=== PATIENT | female | born 1995 | race Caucasian/White ===

== ENCOUNTER 2017-09-12 08:21 | Emergency (ER) | payer BC, OTHER ==
[2017-09-12 08:28] VITALS: BP 120/82; PULSE 95; RESP 17; TEMP 97.6
--- NOTE | 2017-09-12 08:36 | ED ---
General Adult HPI - General Chief complaint: Extremity Injury, Upper Stated complaint: RT HAND INJURY Time Seen by Provider: 09/12/17 08:30 Source: patient, RN notes reviewed Mode of arrival: ambulatory Limitations: no limitations - History of Present Illness Initial comments: 22-year-old female presents to the emergency department with a chief complaint of right hand injury. Patient states that she punched a wooden wall last night. She now has pain to the right hand and to the right wrist. Pain is moderate worse to movement or touch. She denies any other injury from the incident. She denies any elbow pain.Patient denies any recent fever, chills, shortness of breath, chest pain, back pain, abdominal pain, nausea vomiting, numbness or tingling, dysuria or hematuria, constipation or diarrhea, headaches or visual changes, or any other current symptoms. - Related Data Previous Rx's Medication Instructions Recorded Ciprofloxacin HCl [Cipro] 500 mg PO Q12HR #14 tablet 01/14/16 Miconazole Nitrate [Miconazole 3] 200 mg VAGINAL HS #1 package 01/14/16 Pantoprazole Sodium [Protonix] 40 mg PO DAILY #30 tablet. 01/14/16 metroNIDAZOLE [Flagyl] 500 mg PO Q8HR #21 tab 01/14/16 Allergies Allergy/AdvReac Type Severity Reaction Status Date / Time latex Allergy Rash/Hives Verified 09/12/17 08:24 Review of Systems ROS Statement: Those systems with pertinent positive or pertinent negative responses have been documented in the HPI. ROS Other: All systems not noted in ROS Statement are negative. Past Medical History Past Medical History: No Reported History History of Any Multi-Drug Resistant Organisms: None Reported Past Surgical History: No Surgical Hx Reported Past Anesthesia/Blood Transfusion Reactions: No Reported Reaction Past Psychological History: No Psychological Hx Reported Smoking Status: Never smoker Past Alcohol Use History: None Reported Past Drug Use History: None Reported - Past Family History Father Family Medical History: Hypertension General Exam - General Exam Comments Initial Comments: General: The patient is awake and alert, in no distress, and does not appear acutely ill. Neck: The neck is supple, there is no tenderness. Cardiovascular: There is a regular rate and rhythm. No murmur, rub or gallop is appreciated. Respiratory: Lungs are clear to auscultation, respirations are non-labored, breath sounds are equal. No wheezes, stridor, rales, or rhonchi. Musculoskeletal: Sensation intact with 2+ pulses throughout the right upper x- ray. full range of motion of right elbow and right wrist and right hand tenderness along the fourth and fifth metacarpal and tenderness to palpation at the distal right wrist with some swelling noted with minimal bruising. Neurological: CN II-XII intact, There are no obvious motor or sensory deficits. Coordination appears grossly intact. Speech is normal. Skin: Skin is warm and dry and no rashes or lesions are noted. Psychiatric: Normal mood and affect. Limitations: no limitations Course Vital Signs 09/12/17 08:24 Temperature 97.6 F Pulse Rate 95 Respiratory 17 Rate Blood Pressure 120/82 O2 Sat by Pulse 97 Oximetry Procedures - Orthopedic Splinting/Casting Injury #1 Side: right Upper Extremity Injury Location: wrist Upper Extremity Immobilizer: ulnar gutter Medical Decision Making - Medical Decision Making 22-year-old female presents with right wrist pain. At this time patient does appear to have a fifth metacarpal fracture to the right hand. At this time she was placed in a splint and given follow-up to orthopedic. We did discuss return parameters and all questions and mcc with the patient. She stated that she understood and she is in agreement this plan. This time she will be discharged. - Radiology Data Radiology results: report reviewed, image reviewed Disposition Clinical Impression: Fracture of fifth metacarpal bone of right hand Disposition: HOME SELF-CARE Condition: Stable Instructions: Hand Fracture (ED) Additional Instructions: Please use medication as discussed. Please follow up with family doctor if symptoms have not improved over the next two days. Please return to the emergency room if your symptoms increase or worsen or for any other concerns. Referrals: Jesusita Novak III, MD [Primary Care Provider] - 1-2 days Walter Caraballo MD [Medical Doctor] - 1-2 days Time of Disposition: 09:15
--- NOTE | 2017-09-12 08:59 | XR ---
EXAMINATION TYPE: XR hand complete RT , 3 VIEWS DATE OF EXAM ORDERED: 09/12/2017 HISTORY: Pain. COMPARISON: None. FINDINGS: There is a minimally displaced, mildly angulated fracture of the distal metaphysis of the right fifth metacarpal. No additional fractures are seen. IMPRESSION: UNDISPLACED, HIGHLY ANGULATED FRACTURE OF THE DISTAL METAPHYSIS OF THE RIGHT FIFTH METACARPAL. CODE A: INITIAL ENCOUNTER FOR CLOSED FRACTURE.
--- NOTE | 2017-09-12 09:00 | XR ---
EXAMINATION TYPE: XR wrist complete RT , 4 VIEWS DATE OF EXAM ORDERED: 09/12/2017 HISTORY: Pain. COMPARISON: None. FINDINGS: Undisplaced, minimally angulated fracture distal fifth metacarpal metaphysis is again iden tified. No additional fracture, dislocation or other acute osseous lesion is seen. IMPRESSION: MINIMALLY DISPLACED, MILDLY ANGULATED FRACTURE OF THE DISTAL METAPHYSIS OF THE RIGHT FIFTH METACARPAL . CODE A: INITIAL ENCOUNTER FOR CLOSED FRACTURE.
== END 2017-09-12 09:21 | disposition home or self-care (01) ==
LOC: EC 08:21
DX: S62.336A Displaced fracture of neck of fifth metacarpal bone, right hand, initial encounter for closed fracture (principal); Z91.040 Latex allergy status; W22.01XA Walked into wall, initial encounter; Y92.009 Unspecified place in unspecified non-institutional (private) residence as the place of occurrence of the external cause
CPT/HCPCS: 29125; 99283

== ENCOUNTER → 2018-03-30 | Outpatient (CLI) | payer BC ==
--- NOTE | 2018-03-31 08:40 | USB ---
Reason for exam: clinical finding. History: Family history of breast cancer in paternal aunt at age 60. Benign US left guided VAD of the left breast, October 09, 2010. Indicated problem(s): palpable abnormality in the left breast. Physical Findings: Nurse Summary: 1cm nodule at 2 o'clock, moves, no noted nipple discharge (nurse dw). US Breast BILAT Right complete breast ultrasound includes all four quadrants, the retroareolar region and axilla. Finding demonstrates a 0.4 x 0.2 x 0.2cm lesion too small to characterize at 11 o'clock and duct ectasia at the nipple. Left complete breast ultrasound includes all four quadrants, the retroareolar region and axilla. Finding demonstrates duct ectasia at the nipple. These results were verbally communicated with the patient and result sheet given to the patient on 03/30/18. ASSESSMENT: Benign, BI-RAD 2 RECOMMENDATION: Routine screening mammogram of both breasts at age 40. Manage patient on a clinical basis.
== END ==
LOC: RADUSWWP 15:33
PROVIDERS: ATTEND Family Medicine
DX: N64.52 Nipple discharge (principal)

== ENCOUNTER 2020-05-25 12:39 | Emergency (ER) | payer BC ==
[2020-05-25] MEDS ORDERED: SODIUM CHLORIDE 0.9% 1,000 ML IV STA (13:05)
[2020-05-25 13:49] LABS: ALT 11 U/L (4-34); AST 18 U/L (14-36); African American GFR (CKD) >90 (>60 ml/min/1.73 sqM); Albumin 3.3 g/dL (3.5-5.0); Alkaline Phosphatase 71 U/L (38-126); Anion Gap 6 mmol/L; Blood Urea Nitrogen 6 mg/dL (7-17); Calcium 8.9 mg/dL (8.4-10.2); Carbon Dioxide 22 mmol/L (22-30); Chloride 105 mmol/L (98-107); Glucose 104 mg/dL (74-99); Lipase 71 U/L (23-300); Non-African American GFR(CKD) >90 (>60 ml/min/1.73 sqM); Potassium 3.3 mmol/L (3.5-5.1); Sodium 133 mmol/L (137-145); Total Bilirubin 0.6 mg/dL (0.2-1.3); Total Protein 6.3 g/dL (6.3-8.2)
[2020-05-25 14:01] LABS: Appearance,Urine Turbid (Clear); Bacteria,Urine Many /hpf; Bilirubin,Urine Negative (Negative); Blood,Urine Small (Negative); Color,Urine Yellow; Glucose,Urine (UA) Negative (Negative); Ketones,Urine Negative (Negative); Leukocyte Esterase,Urine Large (Negative); Mucus,Urine Rare /hpf; Nitrite,Urine Negative (Negative); PH, Urine 6.5 (5.0-8.0); Protein,Urine 2+ (Negative); RBC,Urine 7 /hpf (0-5); Specific Gravity,Urine 1.016 (1.001-1.035); Squamous Epithelial Cell,Urine 3 /hpf (0-4); Urobilinogen,Urine <2.0 mg/dL (<2.0); WBC,Urine >182 /hpf (0-5)
[2020-05-25] MEDS ORDERED: cefTRIAXone IN SWFI 1,000 MG/10 ML SYRINGE IVP STA (14:09)
[2020-05-25 14:15] LABS: Basophils % (A) 0 %; Eosinophils # (A) 0.1 k/uL (0-0.7); Eosinophils % (A) 0 %; HCT 34.4 % (34.0-46.0); HGB 12.4 gm/dL (11.4-16.0); Lymphocytes # (A) 1.4 k/uL (1.0-4.8); Lymphocytes % (A) 7 %; MCH 31.8 pg (25.0-35.0); MCHC 36.1 g/dL (31.0-37.0); MCV 88.2 fL (80.0-100.0); Monocytes # (A) 0.8 k/uL (0-1.0); Monocytes % (A) 4 %; Neutrophils # (A) 17.1 k/uL (1.3-7.7); Neutrophils % (A) 87 %; Platelet Count 206 k/uL (150-450); RDW 12.8 % (11.5-15.5); WBC 19.6 k/uL (3.8-10.6)
--- NOTE | 2020-05-25 14:45 | US ---
EXAMINATION TYPE: US OB >= 14 wk fetus DATE OF EXAM: 05/25/2020 COMPARISON: None CLINICAL HISTORY: pelvic pain, 19 weeks TECHNIQUE: Transabdominal (TA) GESTATIONAL AGE / DATING Physician Established: (19 weeks/1 days) EDC: 10/18/20 Dates by LMP: LMP Dates by First Scan: No previous this is first scan Dates by Current Scan: (18 weeks/4 days) EDC: 10/23/19 Beta HCG (if available): SURVEY IUP: Single PLACENTA: Posterior PREVIA: No Previa NE: 10.3 cm CERVICAL LENGTH (transabdominal: norm > 3.0cm): 3.2 cm BIOMETRY PRESENTATION: Breech BPD: 4.1 cm 18 weeks / 3 days HC: 15.7 cm 18 weeks / 5 days AC: 12.5 cm 18 weeks / 1 days FL: 2.8 cm 18 weeks / 4 days ESTIMATED WEIGHT IN GRAMS: 233 grams ESTIMATED WEIGHT IN LBS/OZ: 0 lbs. 8 oz. WEIGHT PERCENTAGE BASED ON ESTABLISHED DATES: 9 % HC/AC: 1.3 FL/AC: 22% HEART RATE: 146 bpm RHYTHM: Normal small parts are nonspecifically evaluated during this exam. Consider anatomy examination IMPRESSION: 1. Single intrauterine gestation estimated at 18 weeks 4 days gestation based on current ultrasound m easurements. Cardiac activity measures 146 bpm was observed during the study.
--- NOTE | 2020-05-25 14:46 | US ---
EXAMINATION TYPE: US kidneys/renal and bladder DATE OF EXAM: 05/25/2020 COMPARISON: NONE CLINICAL HISTORY: pyelo. EXAM MEASUREMENTS: Right Kidney: 12.0 x 5.4 x 5.6 cm Left Kidney: 11.3 x 7.0 x 5.4 cm Right Kidney:mild hydronephrosis some internal echoes in fluid, small amount of ff adjacent to kidney Left Kidney: mild hydronephrosis some internal echoes in fluid Bladder: not distended IMPRESSION: 1. Bilateral hydronephrosis
--- NOTE | 2020-05-25 15:09 | ED ---
Abdominal Pain HPI - General Chief Complaint: Abdominal Pain Stated Complaint: 19wks preg, low abd/back pain, NVD Time Seen by Provider: 05/25/20 12:50 Source: patient Mode of arrival: ambulatory Limitations: no limitations - History of Present Illness Initial Comments: Patient is a 25-year-old female with no past medical history presents emergency room with reported left flank pain. Patient is currently at 19 weeks. She states that over the past week she has had left lower quadrant abdominal pain which radiates up to the left flank. Reports a history of pyelonephritis and therefore is concerned for this. Admits to increased alen quency of urination. There is history of kidney stone. No dysuria or hematuria. Denies any vaginal bleeding or discharge. No constipation or diarrhea. Follows with Dr. Allred. Next appointment is next week Thursday. No reported fevers or chills. Does admit to nausea with infrequent vomiting. States that this has been residual from her first trimester however states it's much improved from when she first got . No other alleviating, precipitating modifying factors - Related Data Home Medications Medication Instructions Recorded Confirmed Sertraline [Zoloft] 50 mg PO HS 05/25/20 05/25/20 traZODone HCL 50 mg PO HS 05/25/20 05/25/20 Previous Rx's Medication Instructions Recorded Cephalexin [Keflex] 500 mg PO TID 1 Days #30 cap 05/25/20 Allergies Allergy/AdvReac Type Severity Reaction Status Date / Time latex Allergy Rash/Hives Verified 05/25/20 13:40 Review of Systems ROS Statement: Those systems with pertinent positive or pertinent negative responses have been documented in the HPI. ROS Other: All systems not noted in ROS Statement are negative. Past Medical History Past Medical History: No Reported History History of Any Multi-Drug Resistant Organisms: None Reported Past Surgical History: No Surgical Hx Reported Past Anesthesia/Blood Transfusion Reactions: No Reported Reaction Past Psychological History: No Psychological Hx Reported Smoking Status: Never smoker Past Alcohol Use History: None Reported Past Drug Use History: None Reported - Past Family History Father Family Medical History: Hypertension General Exam Limitations: no limitations General appearance: alert, in no apparent distress Head exam: Present: atraumatic, normocephalic, normal inspection Eye exam: Present: normal appearance, PERRL, EOMI. Absent: scleral icterus, conjunctival injection, periorbital swelling ENT exam: Present: normal exam, mucous membranes moist Neck exam: Present: normal inspection. Absent: tenderness, meningismus, lymphadenopathy Respiratory exam: Present: normal lung sounds bilaterally. Absent: respiratory distress, wheezes, rales, rhonchi, stridor Cardiovascular Exam: Present: normal rhythm, tachycardia, normal heart sounds. Absent: systolic murmur, diastolic murmur, rubs, gallop, clicks GI/Abdominal exam: Present: soft, normal bowel sounds. Absent: distended, ten derness, guarding, rebound, rigid Extremities exam: Present: normal inspection, full ROM, normal capillary refill. Absent: tenderness, pedal edema, joint swelling, calf tenderness Back exam: Present: CVA tenderness (L) Neurological exam: Present: alert, oriented X3, CN II-XII intact Psychiatric exam: Present: normal affect, normal mood Skin exam: Present: warm, dry, intact, normal color. Absent: rash Course Vital Signs 05/25/20 05/25/20 12:50 15:18 Temperature 98.4 F 98.2 F Pulse Rate 110 H 96 Respiratory 16 18 Rate Blood Pressure 115/74 121/75 O2 Sat by Pulse 97 100 Oximetry Medical Decision Making - Medical Decision Making Upon arrival patient is placed into room 19. A thorough history and physical exam was performed. Peripheral IV is established. Her patient was given a liter bolus of normal saline. Laboratory studies conducted. White blood cell count 19.6. Potassium 3.3. Urinalysis demonstrates greater than 182 white blood cells and occasional white blood cell clumps. Many bacteria. Patient was given a dose of Rocephin. Ultrasound was performed which demonstrates a single live intrauterine estimated 18 weeks 4 days. Cardiac activity measures 146 bpm. Ultrasound of the kidneys demonstrates bilateral hydrone phrosis. I discussed the information with the patient. She prefers not to remain hospitalized at this time. I called and discussed the case with Dr. Allred who agrees to a dose of antibiotics in the emergency department and being placed on Keflex 3 times daily. She is to call the office and see Dr. Allred on Thursday. Patient is given very strict return parameters. Instructed to take her temperature. If she has increasing pain, nausea or vomiting or develops fever she must return immediately to the emergency room. Patient understood this. Given written and verbal discharge instructions and discharged home in stable condition - Lab Data Result diagrams: 05/25/20 13:14 05/25/20 13:14 Lab Results 05/25/20 05/25/20 05/25/20 Range/Units 13:14 13:14 13:14 WBC 19.6 H (3.8-10.6) k/uL RBC 3.90 (3.80-5.40) m/uL Hgb 12.4 (11.4-16.0) gm/dL Hct 34.4 (34.0-46.0) % MCV 88.2 (80.0-100.0) fL MCH 31.8 (25.0-35.0) pg MCHC 36.1 (31.0-37.0) g/dL RDW 12.8 (11.5-15.5) % Plt Count 206 (150-450) k/uL MPV 7.0 Neutrophils % 87 % Lymphocytes % 7 % Monocytes % 4 % Eosinophils % 0 % Basophils % 0 % Neutrophils # 17.1 H (1.3-7.7) k/uL Lymphocytes # 1.4 (1.0-4.8) k/uL Monocytes # 0.8 (0-1.0) k/uL Eosinophils # 0.1 (0-0.7) k/uL Basophils # 0.0 (0-0.2) k/uL Sodium 133 L (137-145) mmol/L Potassium 3.3 L (3.5-5.1) mmol/L Chloride 105 (98-107) mmol/L Carbon Dioxide 22 (22-30) mmol/L Anion Gap 6 mmol/L BUN 6 L (7-17) mg/dL Creatinine 0.59 (0.52-1.04) mg/dL Est GFR (CKD-EPI)AfAm >90 (>60 ml/min/1.73 sqM) Est GFR (CKD-EPI)NonAf >90 (>60 ml/min/1.73 sqM) Glucose 104 H (74-99) mg/dL Plasma Lactic Acid Suhail (0.7-2.0) mmol/L Calcium 8.9 (8.4-10.2) mg/dL Total Bilirubin 0.6 (0.2-1.3) mg/dL AST 18 (14-36) U/L ALT 11 (4-34) U/L Alkaline Phosphatase 71 (38-126) U/L Total Protein 6.3 (6.3-8.2) g/dL Albumin 3.3 L (3.5-5.0) g/dL Lipase 71 (23-300) U/L Urine Color Yellow Urine Appearance Turbid H (Clear) Urine pH 6.5 (5.0-8.0) Ur Specific [place] 1.016 (1.001-1.035) Urine Protein 2+ H (Negative) Urine Glucose (UA) Negative (Negative) Urine Ketones Negative (Negative) Urine Blood Small H (Negative) Urine Nitrite Negative (Negative) Urine Bilirubin Negative (Negative) Urine Urobilinogen <2.0 (<2.0) mg/dL Ur Leukocyte Esterase Large H (Negative) Urine RBC 7 H (0-5) /hpf Urine WBC >182 H (0-5) /hpf Urine WBC Clumps Occasional H (None) /hpf Ur Squamous Epith Cells 3 (0-4) /hpf Urine Bacteria Many H (None) /hpf Urine Mucus Rare H (None) /hpf 05/25/20 Range/Units 13:14 WBC (3.8-10.6) k/uL RBC (3.80-5.40) m/uL Hgb (11.4-16.0) gm/dL Hct (34.0-46.0) % MCV (80.0-100.0) fL MCH (25.0-35.0) pg MCHC (31.0-37.0) g/dL RDW (11.5-15.5) % Plt Count (150-450) k/uL MPV Neutrophils % % Lymphocytes % % Monocytes % % Eosinophils % % Basophils % % Neutrophils # (1.3-7.7) k/uL Lymphocytes # (1.0-4.8) k/uL Monocytes # (0-1.0) k/uL Eosinophils # (0-0.7) k/uL Basophils # (0-0.2) k/uL Sodium (137-145) mmol/L Potassium (3.5-5.1) mmol/L Chloride (98-107) mmol/L Carbon Dioxide (22-30) mmol/L Anion Gap mmol/L BUN (7-17) mg/dL Creatinine (0.52-1.04) mg/dL Est GFR (CKD-EPI)AfAm (>60 ml/min/1.73 sqM) Est GFR (CKD-EPI)NonAf (>60 ml/min/1.73 sqM) Glucose (74-99) mg/dL Plasma Lactic Acid Suhail 0.9 (0.7-2.0) mmol/L Calcium (8.4-10.2) mg/dL Total Bilirubin (0.2-1.3) mg/dL AST (14-36) U/L ALT (4-34) U/L Alkaline Phosphatase (38-126) U/L Total Protein (6.3-8.2) g/dL Albumin (3.5-5.0) g/dL Lipase (23-300) U/L Urine Color Urine Appearance (Clear) Urine pH (5.0-8.0) Ur Specific [place] (1.001-1.035) Urine Protein (Negative) Urine Glucose (UA) (Negative) Urine Ketones (Negative) Urine Blood (Negative) Urine Nitrite (Negative) Urine Bilirubin (Negative) Urine Urobilinogen (<2.0) mg/dL Ur Leukocyte Esterase (Negative) Urine RBC (0-5) /hpf Urine WBC (0-5) /hpf Urine WBC Clumps (None) /hpf Ur Squamous Epith Cells (0-4) /hpf Urine Bacteria (None) /hpf Urine Mucus (None) /hpf Disposition Clinical Impression: Flank pain, Pyelonephritis, Second trimester Disposition: HOME SELF-CARE Condition: Stable Instructions (If sedation given, give patient instructions): Kidney Infection (ED) Additional Instructions: Please call the office and see Dr. Allred early next week. Take your temperature every day. Return to the emergency room for any new or worsening symptoms Prescriptions: Cephalexin [Keflex] 500 mg PO TID 1 Days #30 cap Is patient prescribed a controlled substance at d/c from ED?: No Referrals: Jesusita Novak III, MD [Primary Care Provider] - 1-2 days Mariana Allred DO [Doctor of Osteopathic Medicine] - 1-2 days Time of Disposition: 15:09
[2020-05-25 15:19] VITALS: BP 121/75; PULSE 96; RESP 18; TEMP 98.2
== END 2020-05-25 15:18 | disposition home or self-care (01) ==
LOC: EC 12:39
DX: O23.02 Infections of kidney in pregnancy, second trimester (principal); N13.6 Pyonephrosis; Z3A.18 18 weeks gestation of pregnancy; Z91.040 Latex allergy status
CPT/HCPCS: 36415; 80053; 83605; 83690; 85025; 81001; 87086; 87077; 87186; 76805; 76770; 99284; 96374; 96361; J0696

== ENCOUNTER 2020-10-11 06:00 | Inpatient (IN) | payer BC, OTHER ==
[2020-10-11] MEDS ORDERED: LIDOCAINE 0.5% (PF) 5 MG/ML (50 ML SDV) SQ PRN (06:49)
[2020-10-11] MEDS ORDERED: CARBOPROST TROMETHAMINE 250 MCG/ML 1 ML AMP IM PRN (06:49)
[2020-10-11] MEDS ORDERED: OXYTOCIN 10 UNIT/ML 1 ML VIAL IM PRN (06:49)
[2020-10-11] MEDS ORDERED: TERBUTALINE 1 MG/ML VIAL SQ PRN (06:49)
[2020-10-11] MEDS ORDERED: METHYLERGONOVINE 0.2 MG/ML 1 ML AMP IM PRN (06:49)
[2020-10-11] MEDS: LACTATED RINGERS 1,000 ML IV SCH ×3 (06:58→14:26)
[2020-10-11] MEDS ORDERED: OXYTOCIN 30 UNITS/500 ML NS 30 UNIT in SALINE 1 500ML.BAG IV SCH ×2 (07:00→11:00)
[2020-10-11 08:19] LABS: Basophils % (A) 0 %; Eosinophils # (A) 0.1 k/uL (0-0.7); Eosinophils % (A) 1 %; HCT 31.7 % (34.0-46.0); HGB 11.4 gm/dL (11.4-16.0); Lymphocytes # (A) 2.4 k/uL (1.0-4.8); Lymphocytes % (A) 27 %; MCH 30.8 pg (25.0-35.0); MCV 85.4 fL (80.0-100.0); Mean Platelet Volume 7.9; Monocytes # (A) 0.4 k/uL (0-1.0); Monocytes % (A) 4 %; Neutrophils % (A) 67 %; Platelet Count 165 k/uL (150-450); RBC 3.71 m/uL (3.80-5.40); RDW 13.3 % (11.5-15.5)
[2020-10-11] MEDS: FAMOTIDINE 20 MG/2 ML VIAL IV SCH (08:52)
[2020-10-11] MEDS ORDERED: CITRIC ACID-SODIUM CITRATE 15 ML CUP PO ONE (10:00)
[2020-10-11] MEDS ORDERED: DEXAMETHASONE SOD PHOSPHATE 10 MG/ML 1 ML VIAL ONE (10:08)
[2020-10-11] MEDS ORDERED: PROPOFOL 10 MG/ML 20 ML VIAL IV ONE (10:08)
[2020-10-11] MEDS ORDERED: HYDROmorphone (PF) 1 MG/ML ONE (10:08)
[2020-10-11] MEDS ORDERED: ceFAZolin 1,000 MG VIAL ONE (10:08)
[2020-10-11] MEDS ORDERED: ONDANSETRON 4 MG/2 ML VIAL ONE (10:08)
[2020-10-11] MEDS ORDERED: OXYTOCIN 10 UNIT/ML 1 ML VIAL ONE (10:08)
[2020-10-11] MEDS ORDERED: fentaNYL (PF) 50 MCG/ML 2 ML AMP ONE (10:08)
[2020-10-11] MEDS ORDERED: LIDOCAINE 1% INJ 10MG/ML (20 ML MDV) ONE (10:08)
[2020-10-11] MEDS ORDERED: SODIUM CHLORIDE 0.9% 100 ML BAG ONE (10:08)
[2020-10-11] MEDS ORDERED: SUCCINYLCHOLINE CHLORIDE 100 MG/5 ML SYR IV ONE (10:08)
[2020-10-11] MEDS ORDERED: ONDANSETRON 4 MG/2 ML VIAL IVP PRN (10:52)
[2020-10-11] MEDS ORDERED: HYDROmorphone PCA 10 MG/50 ML BAG IV PRN (10:52)
[2020-10-11] MEDS ORDERED: ZOLPIDEM 5 MG TAB PO PRN (10:52)
[2020-10-11] MEDS ORDERED: SIMETHICONE 80 MG CHEWABLE PO PRN (10:52)
[2020-10-11] MEDS ORDERED: NALOXONE 0.4 MG/ML 1 ML VIAL IV PRN (10:52)
[2020-10-11] MEDS ORDERED: METOCLOPRAMIDE 5 MG/ML 2 ML VIAL IVP PRN (10:52)
[2020-10-11] MEDS ORDERED: diphenhydrAMINE 25 MG CAP PO PRN (10:52)
[2020-10-11] MEDS ORDERED: diphenhydrAMINE 50 MG/ML 1 ML VIAL IVP PRN ×2 (10:52)
[2020-10-11] MEDS ORDERED: diphenhydrAMINE 50 MG CAP PO PRN (10:52)
--- NOTE | 2020-10-11 10:57 | P.HPOB ---
History of Present Illness H&P Date: 10/11/20 Chief Complaint: IUP at 39 and 0/sevenths weeks, induction of labor This is a 25-year-old at 39-0/7 weeks that presents to labor and delivery for elective induction of labor. Patient had been receiving routine care with myself which had been essentially uncomplicated. Patient does have a known history of ADHD and anxiety. On bloodwork this patient has a blood type of A+, rubella status immune, B surface antigen negative, HIV negative, RPR nonreactive, group beta strep is negative. Patient does note good movement today, denies vaginal bleeding loss of fluid Review of Systems Constitutional: Denies chills, Denies fatigue, Denies fever Ears, nose, mouth and throat: Denies headache Cardiovascular: Reports leg edema Respiratory: Denies dyspnea Gastrointestinal: Denies constipation, Denies diarrhea, Denies nausea, Denies vomiting Genitourinary: Reports Past Medical History Past Medical History: No Reported History History of Any Multi-Drug Resistant Organisms: None Reported Past Surgical History: Tonsillectomy Additional Past Surgical History / Comment(s): [place] tooth extraction Past Anesthesia/Blood Transfusion Reactions: No Reported Reaction Past Psychological History: No Psychological Hx Reported Smoking Status: Never smoker Past Alcohol Use History: None Reported Past Drug Use History: Marijuana - Past Family History Father Family Medical History: Hypertension Medications and Allergies Home Medications Medication Instructions Recorded Confirmed Type Sertraline [Zoloft] 75 mg PO HS 05/25/20 10/11/20 History Pnv,Calcium 72/Iron/Folic Acid 1 each PO DAILY 10/11/20 10/11/20 History [ Plus Tablet] Allergies Allergy/AdvReac Type Severity Reaction Status Date / Time latex Allergy Rash/Hives Verified 10/11/20 06:47 Exam Osteopathic Statement: *. No significant issues noted on an osteopathic structural exam other than those noted in the History and Physical/Consult. Vital Signs Temp Pulse Resp BP 10/11/20 07:46 97.5 F L 74 16 140/92 Intake and Output 10/10/20 10/11/20 10/11/20 22:59 06:59 14:59 Other: Weight 80.286 kg 80.286 kg Targeted physical exam is performed and state in general this a well-nourished well-developed female in no acute distress, breathing is noted to be nonlabored, heart has regular rate and rhythm, abdomen is gravid and appropriate for gestational age, on cervical exam she is 2/50/-2 station amniotomy is performed and meconium-stained fluid is appreciated. Category 1 heart tones are noted and she is carin regularly. Results Result Diagrams: 10/11/20 08:05 Abnormal Lab Results - Last 24 Hours (Table) 10/11/20 Range/Units 08:05 RBC 3.71 L (3.80-5.40) m/uL Hct 31.7 L (34.0-46.0) % Assessment and Plan (1) Term Current Visit: Yes Status: Acute Code(s): Z34.90 - ENCNTR FOR SUPRVSN OF NORMAL , UNSP, UNSP TRIMESTER SNOMED Code(s): 41684178 (2) Meconium in amniotic fluid Current Visit: Yes Status: Acute Code(s): P96.83 - MECONIUM STAINING SNOMED Code(s): 999976153 Plan: This 25-year-old at 39-0/7 weeks presents to labor and delivery for scheduled induction of labor. Patient is admitted to labor and delivery and Pitocin induction of labor is begun. Upon amniotomy thin meconium-stained fluid is appreciated. Epidural and Stadol were discussed with patient and she will decide when she becomes uncomfortable. And states spontaneous vaginal delivery.
--- NOTE | 2020-10-11 11:00 | P.OP ---
Date of Procedure: 10/11/20 Preoperative Diagnosis: IUP at 39 0/7 weeks, meconium-stained fluid, nonreassuring heart tones Postoperative Diagnosis: Same Procedure(s) Performed: Primary low transverse section Anesthesia: LUCILA Surgeon: Mariana Allred Furnace Converter #1: Aryan Martinez Estimated Blood Loss (ml): 500 IV fluids (ml): 500 Urine output (ml): 200 Pathology: other (Placenta) Condition: stable Disposition: PACU Indications for Procedure: 25-year-old at 39-0/7 weeks was admitted this morning for planned induction of labor. Pitocin induction of labor was begun per hospital protocol. Amniotomy was performed and meconium-stained fluid was appreciated. Patient progressed through labor patient was noted to have a deceleration of heart tones which recovered and then decelerated down to the 50s as noted on a scalp electrode. Multiple position changes were attempted. heart tones did not recover therefore Jansen catheter was placed and she was taken back to the operating room for emergent secondary to nonreassuring heart tones Operative Findings: Normal uterus tubes and ovaries were appreciated. Viable female infant delivered at 1018, weight of 7 lbs. 1 oz. with Apgars of 6 and 9 at one and 5 minutes respectively. Meconium-stained placenta/uterus/ were appreciated no nuchal cord was noted. Description of Procedure: The patient was prepped and draped in the usual fashion prior to general anesthesia being administered by the anesthesia department.. A Pfannenstiel incision was made and extended of the abdominal cavity without difficulty. The bladder peritoneum was elevated and incised and reflected distally. A 2 cm incision was made in the transverse plane of the lower uterine segment to enter the uterus at which time clear fluid was noted. The incision was extended in both directions using the bandage scissors. The head was encountered within the field and delivered up and through the incision where the nose and mouth were thoroughly suctioned. Remainder of the infant was delivered onto the surgical field where the cord was doubly clamped, cut, and the was passed for resuscitative measures with weight and Apgars as noted above. A segment of cord was then doubly clamped, cut, and set aside should cord gases become necessary. The placenta was delivered manually, intact, and was grossly normal with a grossly normal three-vessel cord. The uterus was exteriorized and the interior cavity of the uterus swept of any remaining placental and membranous fragments with a laparotomy sponge. The margins of the incision were grasped with Donovan clamps and the incision closed in 2 layers. First layer was a running locking layer of 0 Vicryl from margin to margin followed by a second layer of imbricating 0 Vicryl from margin to margin. Any small points of bleeding were then made hemostatic with the Bovie. Once hemostasis was achieved, the posterior cul-de-sac was suctioned with a guard and the uterine and ovarian findings are as noted above. The uterus was replaced within the abdominal cavity and the gutters swept of any remaining blood fluid or clot. The incision was again reexamined and hemostasis was noted to be excellent. Any small point of bleeding were made hemostatic with the Bovie. Once hemostasis was achieved the parietal peritoneum was loosely reapproximated. The layer of muscles were examined and made hemostatic with the Bovie. Attention was then turned to the fascia which was closed with 2 running stitches of 0 Vicryl procee ding from the lateral margins to the midpoint. The subcutaneous tissues were irrigated, made hemostatic with the Bovie, and reapproximated with a running stitch of 30 Vicryl. The skin was reapproximated with 4-0 Vicryl. Estimated blood loss for the case was approximately 500 mL. All sponge instrument and needle counts are correct. There were no complications. The patient tolerated the procedure well and proceeded to the recovery room in stable condition. Both mother and are resting comfortably in recovery.
[2020-10-11 11:02] LABS: ALT 10 U/L (4-34); AST 24 U/L (14-36); African American GFR (CKD) >90 (>60 ml/min/1.73 sqM); Blood Urea Nitrogen 10 mg/dL (7-17); LDH 319 U/L (313-618); Non-African American GFR(CKD) >90 (>60 ml/min/1.73 sqM); Uric Acid 5.8 mg/dL (3.7-7.4)
[2020-10-11 11:08] LABS: INR 0.8 (<1.2); Partial Thromboplastin Time 22.7 sec (22.0-30.0); Prothrombin Time 9.4 sec (9.0-12.0)
--- NOTE | 2020-10-11 11:24 | XR ---
EXAMINATION TYPE: XR abdomen 1V DATE OF EXAM: 10/11/2020 COMPARISON: NONE HISTORY: Pain TECHNIQUE: One view abdominal series FINDINGS: The osseous structures are intact. The bowel gas pattern is nonspecific. Lung bases are clear. IMPRESSION: 1. Nonspecific abdomen.
[2020-10-11] MEDS: ACETAMINOPHEN IV (For NPO) 1,000 MG in EMPTY BAG 1 BAG IVPB SCH ×2 (11:48→18:28)
[2020-10-11] MEDS: ACETAMINOPHEN TAB 500 MG TAB PO SCH ×2 (14:26→19:46)
[2020-10-11] MEDS: IBUPROFEN 600 MG TAB PO SCH ×2 (16:18→22:59)
[2020-10-11] MEDS ORDERED: IBUPROFEN IV 800 MG in SODIUM CHLORIDE 0.9% 250 ML IV SCH (18:00)
[2020-10-11] MEDS: SENNOSIDES-DOCUSATE SODIUM 1 EACH TAB PO SCH (19:28)
[2020-10-12] MEDS: ACETAMINOPHEN TAB 500 MG TAB PO SCH ×4 (02:07→19:59)
[2020-10-12] MEDS: IBUPROFEN 600 MG TAB PO SCH ×4 (05:13→23:30)
[2020-10-12 06:21] LABS: Basophils % (A) 0 %; Eosinophils # (A) 0.1 k/uL (0-0.7); Eosinophils % (A) 0 %; HCT 25.3 % (34.0-46.0); Lymphocytes # (A) 2.8 k/uL (1.0-4.8); Lymphocytes % (A) 23 %; MCH 30.9 pg (25.0-35.0); MCHC 35.8 g/dL (31.0-37.0); MCV 86.3 fL (80.0-100.0); Mean Platelet Volume 8.6; Monocytes # (A) 0.6 k/uL (0-1.0); Monocytes % (A) 5 %; Neutrophils # (A) 8.5 k/uL (1.3-7.7); Neutrophils % (A) 71 %; Platelet Count 160 k/uL (150-450); RBC 2.94 m/uL (3.80-5.40); RDW 13.5 % (11.5-15.5)
[2020-10-12 06:35] LABS: HGB 9.1 gm/dL (11.4-16.0)
[2020-10-12] MEDS: FAMOTIDINE 20 MG/2 ML VIAL IV SCH (07:57)
[2020-10-12] MEDS: LACTATED RINGERS 1,000 ML IV SCH ×2 (09:20→11:17)
[2020-10-12] MEDS: SENNOSIDES-DOCUSATE SODIUM 1 EACH TAB PO SCH ×2 (09:20→20:57)
--- NOTE | 2020-10-12 10:55 | P.PNOBGPC ---
Subjective - Subjective Principal diagnosis: POD 1 emergent low transverse section secondary to NRFHTs Interval history: Patient is doing well this morning. She is ambulating and voiding without difficulty. She states her pain is well-controlled, FIRE TENDER does remain. She notes her lochia is minimal. She is breast-feeding without difficulty. She notes positive flatus. She is tolerating a regular diet without nausea or vomiting. Patient reports: Reports appetite normal, Reports voiding normally, Reports pain well controlled, Reports ambulating normally : doing well, nursing well Objective - Vital Signs Latest vital signs: Vital Signs Temp Pulse Resp BP Pulse Ox 10/12/20 08:00 97.8 F 80 16 125/85 10/12/20 04:00 78 16 136/80 10/12/20 00:00 97.9 F 77 16 133/81 98 10/11/20 19:43 97.6 F 83 16 129/80 97 10/11/20 16:00 97.8 F 86 16 122/81 97 10/11/20 13:24 96.7 F L 86 16 142/93 100 10/11/20 13:09 75 16 157/102 100 10/11/20 12:24 85 16 147/97 100 10/11/20 12:09 97 16 135/91 100 10/11/20 11:54 96.5 F L 72 16 130/90 100 10/11/20 11:40 96.6 F L 78 16 126/83 100 10/11/20 11:28 16 10/11/20 11:24 96.4 F L 80 16 138/95 99 Intake and Output 10/11/20 10/12/20 10/12/20 22:59 06:59 14:59 Intake Total 600 80 Output Total 200 250 Balance 400 -170 Intake: IV 600 80 Output: Urine 200 250 Uretheral (Jansen) 200 Other: Voiding Method Toilet # Voids 1 1 - Exam Extremities: Present: normal, edema Abdomen: Present: normal appearance Incision: Present: normal, dry, intact Uterus: Present: normal, firm - Labs Labs: Abnormal Lab Results - Last 24 Hours (Table) 10/12/20 Range/Units 05:59 WBC 12.0 H (3.8-10.6) k/uL RBC 2.94 L (3.80-5.40) m/uL Hgb 9.1 L D (11.4-16.0) gm/dL Hct 25.3 L (34.0-46.0) % Neutrophils # 8.5 H (1.3-7.7) k/uL Assessment and Plan (1) Term Current Visit: Yes Status: Acute Code(s): Z34.90 - ENCNTR FOR SUPRVSN OF NORMAL , UNSP, UNSP TRIMESTER SNOMED Code(s): 21842212 (2) Meconium in amniotic fluid Current Visit: Yes Status: Acute Code(s): P96.83 - MECONIUM STAINING SNOMED Code(s): 096509338 (3) S/P section Current Visit: Yes Status: Acute Code(s): Z98.891 - HISTORY OF UTERINE SCAR FROM PREVIOUS SURGERY SNOMED Code(s): 778729188 (4) bradycardia Current Visit: Yes Status: Acute Code(s): NEC5969 - SNOMED Code(s): 272614587 Plan: 25-year-old G2 now P2 status post primary for nonreassuring heart tones, bradycardia. Heart tones returned to be in the 50s therefore emergent was performed and general anesthesia. This morning mom and infant are doing well. Mom states her pain is well-controlled we'll discontinue FIRE TENDER, increased ambulation and advance to oral pain medication. Anticipate discharge home tomorrow.
[2020-10-13] MEDS: IBUPROFEN 600 MG TAB PO SCH ×2 (01:26→07:55)
[2020-10-13] MEDS: ACETAMINOPHEN TAB 500 MG TAB PO SCH ×2 (04:12→05:05)
[2020-10-13] MEDS: SENNOSIDES-DOCUSATE SODIUM 1 EACH TAB PO SCH (07:55)
[2020-10-13 08:48] VITALS: BP 147/94; PULSE 89; RESP 17; TEMP 97.6
--- NOTE | 2020-10-13 11:08 | P.DS ---
Providers Date of admission: 10/11/20 06:22 Expected date of discharge: 10/13/20 Attending physician: Mariana Allred Primary care physician: Stated None - Discharge Diagnosis(es) (1) S/P section Current Visit: Yes Status: Acute Hospital Course: The patient is a 25-year-old 2 para 1001 admitted at 39-0/7 weeks for elective induction of labor with all signs reassuring. Her has been uncomplicated though she has a history of ADHD with anxiety. Group B strep status is negative. On labor and delivery, she had Pitocin augmentation started followed by artificial rupture of membranes for meconium-stained fluid. As she progressed through the early portions of labor she had a significant bradycardia to the 60s which was persistent at which time she was taken to the operating room for an emergent primary low-transverse section. She underwent this procedure and on Mccall fashion and was delivered of a viable 7 lbs. 1 oz. baby girl with Apgars of 6 at 1 minute and 9 at 5 minutes. Her postoperative course has been unremarkable, vital signs are stable and the patient is afebrile. She was deemed stable for discharge on postoperative day #2 was discharged home to follow-up in the office in 2 weeks for an incision check and 6 weeks routinely. Discharge instructions included calling for any significantly increased bleeding or foul-smelling lochia, significantly increased fever abdominal pain, perineal complaints, breast complaints, incisional complaints, or anything else that concerned her. She is additionally instructed to have nothing in the vagina for at least 6 weeks time to include intercourse and to abstain from any heavy lifting over the same period of time. She was last instructed to do no driving until off of all pain medications or 2 weeks' time, whichever came first. She understood all of her instructions and agrees follow up as noted above. Discharge medications included continued vitamins as she has opted to breast-feed as well as [id number] analgesic pain medications. She was provided with a prescription for Tylenol 3, 1-2 by mouth every 6 hours when necessary pain, #20 dispensed with no refills. Maternal blood type is A+ and rubella status is immune. Discharge hemoglobin and hematocrit were 9.1 and 25.3 respectively. Procedures: #1. Pitocin induction #2. Artificial rupture of membranes #3. Emergent primary low transverse section Patient Condition at Discharge: Stable Plan - Discharge Summary New Discharge Prescriptions: No Action Sertraline [Zoloft] 75 mg PO HS Pnv,Calcium 72/Iron/Folic Acid [ Plus Tablet] 1 each PO DAILY Discharge Medication List Sertraline [Zoloft] 75 mg PO HS 05/25/20 [History] Pnv,Calcium 72/Iron/Folic Acid [ Plus Tablet] 1 each PO DAILY 10/11/20 [History] Follow up Appointment(s)/Referral(s): Mariana Allred DO [Doctor of Osteopathic Medicine] - 2 Weeks Discharge Disposition: HOME SELF-CARE
== END 2020-10-13 11:30 | disposition home or self-care (01) | DRG 788 ==
LOC: 4FBP 06:22
PROVIDERS: ADMIT Obstetrics & Gynecology Obstetrics; ATTEND Obstetrics & Gynecology Obstetrics
PROC: 10907ZC Drainage of Amniotic Fluid, Therapeutic from Products of Conception, Via Natural or Artificial Opening (ICD-10-PCS; 2020-10-11)
PROC: 10D00Z1 Extraction of Products of Conception, Low, Open Approach (ICD-10-PCS; principal; 2020-10-11 06:00)
DX: O77.0 Labor and delivery complicated by meconium in amniotic fluid (principal); Z37.0 Single live birth; Z82.49 Family history of ischemic heart disease and other diseases of the circulatory system; Z3A.39 39 weeks gestation of pregnancy; O76 Abnormality in fetal heart rate and rhythm complicating labor and delivery
CPT/HCPCS: 74018; 82565; 83615; 84450; 84460; 84520; 84550; 85025; 85384; 85610; 85730; 86850; 86900; 86901

== ENCOUNTER 2023-11-08 10:38 | Emergency (ER) | payer OTHER ==
[2023-11-08 10:55] VITALS: RESP 18; TEMP 97.7
[2023-11-08] MEDS: SODIUM CHLORIDE 0.9% 2,000 ML IV STA (11:38)
[2023-11-08] MEDS: ONDANSETRON 4 MG/2 ML VIAL IVP STA (11:38)
[2023-11-08 12:00] LABS: ALT 15 U/L (4-34); AST 20 U/L (14-36); African American GFR (CKD) >90 (>60 ml/min/1.73 sqM); Albumin 3.7 g/dL (3.5-5.0); Alkaline Phosphatase 64 U/L (38-126); Anion Gap 7 mmol/L; Blood Urea Nitrogen 6 mg/dL (7-17); Carbon Dioxide 21 mmol/L (22-30); Chloride 107 mmol/L (98-107); Glucose 110 mg/dL (74-99); Non-African American GFR(CKD) >90 (>60 ml/min/1.73 sqM); Potassium 3.7 mmol/L (3.5-5.1); Sodium 135 mmol/L (137-145); Total Bilirubin 0.6 mg/dL (0.2-1.3); Total Protein 6.6 g/dL (6.3-8.2)
[2023-11-08 12:02] LABS: Basophils % (A) 0 %; Eosinophils # (A) 0.9 k/uL (0-0.7); Eosinophils % (A) 10 %; HCT 38.2 % (34.0-46.0); Lymphocytes # (A) 1.7 k/uL (1.0-4.8); Lymphocytes % (A) 20 %; MCH 29.3 pg (25.0-35.0); MCHC 34.1 g/dL (31.0-37.0); MCV 86.1 fL (80.0-100.0); Mean Platelet Volume 7.2; Monocytes # (A) 0.4 k/uL (0-1.0); Monocytes % (A) 4 %; Neutrophils # (A) 5.6 k/uL (1.3-7.7); Neutrophils % (A) 65 %; Platelet Count 262 k/uL (150-450); RBC 4.43 m/uL (3.80-5.40); RDW 13.4 % (11.5-15.5); WBC 8.7 k/uL (3.8-10.6)
--- NOTE | 2023-11-08 12:18 | ED ---
Nausea/Vomiting/Diarrhea HPI - General Chief complaint: Nausea/Vomiting/Diarrhea Stated complaint: Dehydration,10wks preg Time Seen by Provider: 11/08/23 10:45 Source: patient, RN notes reviewed Mode of arrival: ambulatory Limitations: no limitations - History of Present Illness Initial comments: This is a 28 year old female who presents to the emergency department for nausea and vomiting in . Patient is approximately 10 weeks and . States that she has had problems with ongoing nausea and vomiting in this and is concerned about becoming dehydrated. Denies any abdominal pain or vaginal bleeding. She has a prescription for Reglan, but states that she ran out of it yesterday. She is supposed to get this refilled later today, but states that she wanted to make sure she got IV fluids. MD complaint: nausea, vomiting - Related Data Home Medications Medication Instructions Recorded Confirmed Sertraline [Zoloft] 75 mg PO HS 05/25/20 10/11/20 Vit No.180/Iron/Folic 1 each PO DAILY 10/11/20 10/11/20 [ Plus Tablet] Previous Rx's Medication Instructions Recorded Ondansetron Odt [Zofran Odt] 4 mg PO Q8HR PRN #30 tab 11/08/23 Allergies Allergy/AdvReac Type Severity Reaction Status Date / Time latex Allergy Rash/Hives Verified 10/11/20 06:47 Review of Systems ROS Statement: Those systems with pertinent positive or pertinent negative responses have been documented in the HPI. ROS Other: All systems not noted in ROS Statement are negative. Past Medical History Past Medical History: No Reported History History of Any Multi-Drug Resistant Organisms: None Reported Past Surgical History: Tonsillectomy Additional Past Surgical History / Comment(s): [place] tooth extraction Past Anesthesia/Blood Transfusion Reactions: No Reported Reaction Past Psychological History: No Psychological Hx Reported Smoking Status: Never smoker Past Alcohol Use History: None Reported Past Drug Use History: Marijuana - Past Family History Father Family Medical History: Hypertension General Exam Limitations: no limitations General appearance: alert, in no apparent distress Head exam: Present: atraumatic, normocephalic, normal inspection Respiratory exam: Present: normal lung sounds bilaterally. Absent: respiratory distress, wheezes, rales, rhonchi, stridor Cardiovascular Exam: Present: regular rate, normal rhythm, normal heart sounds. Absent: systolic murmur, diastolic murmur, rubs, gallop, clicks Neurological exam: Present: alert, oriented X3, CN II-XII intact Psychiatric exam: Present: normal affect, normal mood Skin exam: Present: warm, dry, intact, normal color. Absent: rash Course Vital Signs 11/08/23 11/08/23 10:39 13:30 Temperature 97.7 F Pulse Rate 65 78 Respiratory 18 18 Rate Blood Pressure 133/84 130/76 O2 Sat by Pulse 99 97 Oximetry Medical Decision Making - Medical Decision Making This is a 28 year old female who presents to the emergency department for nausea and vomiting in . Was pt. sent in by a medical professional or institution? @ -No Did you speak to anyone other than the patient for history? @ -No Did you review nursing and triage notes? @ -Yes, and I agree, it is accurate with regards to the patient's symptoms. Were old charts reviewed? @ -No Differential Diagnosis? @ -Differential Nausea and Vomiting: Gastroenteritis, cholecystitis, appendicitis, pancreatitis, migraine, benign positional vertigo, food borne illness, pyelonephritis, irritable bowel syndrome, influenza, Covid, GERD, incarcerated hernia, intestinal obstruction, this is not meant to be an all-inclusive list. EKG interpreted by me (3pts min.)? @ -Not obtained X-rays interpreted by me (1pt min.)? @ -Not obtained CT interpreted by me (1pt min.)? @ -Not obtained U/S interpreted by me (1pt. min.)? @ -Not obtained What testing was considered but not performed? (CT, X-rays, U/S, labs)? Why? @ -None What meds were considered but not given? Why? @ -None Did you discuss the management of the patient with other professionals? @ -No Did you reconcile home meds? @ -No Was smoking cessation discussed for >3mins.? @ -No Was critical care preformed (if so, how long)? @ -No Were there social determinants of health that impacted care today? How? (Homelessness, low income, unemployed, alcoholism, drug addiction, transportation, low edu. Level, literacy, decrease access to med. care, [place] [facility], rehab)? @ -No Was there de-escalation of care discussed even if they declined? (Discuss DNR or withdrawal of care, Hospice)? @ -No What co-morbidities impacted this encounter? (DM, HTN, Smoking, COPD, CAD, Cancer, CVA, Hep., AIDS, mental health diagnosis, sleep apnea, morbid obesity)? @ - Was patient admitted / discharged? @ -Discharged. Lab work unremarkable. Urinalysis negative for signs of infection. Patient treated with a 2 L bolus of IV fluids and Zofran. She had significant improvement in symptoms afterwards and was able to tolerate oral intake. Prescription for Zofran provided with dosing instructions reviewed in the event the Reglan is not effective. Advised she slowly advance her diet as tolerated and remain well-hydrated. 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 Undiagnosed new problem with uncertain prognosis? @ -None Drug Therapy requiring intensive monitoring for toxicity (Heparin, Nitro, Insulin, Cardizem)? @ -None Were any procedures done? @ -None Diagnosis/symptom? @ -Nausea and vomiting in Acute, or Chronic, or Acute on Chronic? @ -Acute Uncomplicated (without systemic symptoms) or Complicated (systemic symptoms)? @ -Uncomplicated Side effects of treatment? @ -None Exacerbation, Progression, or Severe Exacerbation] @ -Not applicable Poses a threat to life or bodily function? @ -No Return precautions reviewed in depth, the patient is instructed to return to the emergency department with any new, worsening, or concerning symptoms. Patient verbalized understanding. This case was discussed in detail with the attending ED physician, Dr. Beasley. Presentation, findings, and treatment plan discussed in detail as well. - Lab Data Result diagrams: 11/08/23 11:42 11/08/23 11:42 Lab Results 11/08/23 11/08/23 11/08/23 Range/Units 11:42 11:42 11:42 WBC 8.7 (3.8-10.6) k/uL RBC 4.43 (3.80-5.40) m/uL Hgb 13.0 (11.4-16.0) gm/dL Hct 38.2 (34.0-46.0) % MCV 86.1 (80.0-100.0) fL MCH 29.3 (25.0-35.0) pg MCHC 34.1 (31.0-37.0) g/dL RDW 13.4 (11.5-15.5) % Plt Count 262 (150-450) k/uL MPV 7.2 Neutrophils % 65 % Lymphocytes % 20 % Monocytes % 4 % Eosinophils % 10 % Basophils % 0 % Neutrophils # 5.6 (1.3-7.7) k/uL Lymphocytes # 1.7 (1.0-4.8) k/uL Monocytes # 0.4 (0-1.0) k/uL Eosinophils # 0.9 H (0-0.7) k/uL Basophils # 0.0 (0-0.2) k/uL Sodium 135 L (137-145) mmol/L Potassium 3.7 (3.5-5.1) mmol/L Chloride 107 (98-107) mmol/L Carbon Dioxide 21 L (22-30) mmol/L Anion Gap 7 mmol/L BUN 6 L (7-17) mg/dL Creatinine 0.44 L (0.52-1.04) mg/dL Est GFR (CKD-EPI)AfAm >90 (>60 ml/min/1.73 sqM) Est GFR (CKD-EPI)NonAf >90 (>60 ml/min/1.73 sqM) Glucose 110 H (74-99) mg/dL Calcium 9.0 (8.4-10.2) mg/dL Total Bilirubin 0.6 (0.2-1.3) mg/dL AST 20 (14-36) U/L ALT 15 (4-34) U/L Alkaline Phosphatase 64 (38-126) U/L Total Protein 6.6 (6.3-8.2) g/dL Albumin 3.7 (3.5-5.0) g/dL HCG, Quant 512465.0 mIU/mL Urine Color Urine Appearance (Clear) Urine pH (5.0-8.0) Ur Specific [place] (1.001-1.035) Urine Protein (Negative) Urine Glucose (UA) (Negative) Urine Ketones (Negative) Urine Blood (Negative) Urine Nitrite (Negative) Urine Bilirubin (Negative) Urine Urobilinogen (<2.0) mg/dL Ur Leukocyte Esterase (Negative) Urine RBC (0-5) /hpf Urine WBC (0-5) /hpf Ur Squamous Epith Cells (0-4) /hpf Urine Bacteria (None) /hpf Urine Mucus (None) /hpf Blood Type A Positive Blood Type Recheck A Pos Bld Type Recheck Status No 11/08/23 Range/Units 11:43 WBC (3.8-10.6) k/uL RBC (3.80-5.40) m/uL Hgb (11.4-16.0) gm/dL Hct (34.0-46.0) % MCV (80.0-100.0) fL MCH (25.0-35.0) pg MCHC (31.0-37.0) g/dL RDW (11.5-15.5) % Plt Count (150-450) k/uL MPV Neutrophils % % Lymphocytes % % Monocytes % % Eosinophils % % Basophils % % Neutrophils # (1.3-7.7) k/uL Lymphocytes # (1.0-4.8) k/uL Monocytes # (0-1.0) k/uL Eosinophils # (0-0.7) k/uL Basophils # (0-0.2) k/uL Sodium (137-145) mmol/L Potassium (3.5-5.1) mmol/L Chloride (98-107) mmol/L Carbon Dioxide (22-30) mmol/L Anion Gap mmol/L BUN (7-17) mg/dL Creatinine (0.52-1.04) mg/dL Est GFR (CKD-EPI)AfAm (>60 ml/min/1.73 sqM) Est GFR (CKD-EPI)NonAf (>60 ml/min/1.73 sqM) Glucose (74-99) mg/dL Calcium (8.4-10.2) mg/dL Total Bilirubin (0.2-1.3) mg/dL AST (14-36) U/L ALT (4-34) U/L Alkaline Phosphatase (38-126) U/L Total Protein (6.3-8.2) g/dL Albumin (3.5-5.0) g/dL HCG, Quant mIU/mL Urine Color Yellow Urine Appearance Cloudy H (Clear) Urine pH 7.0 (5.0-8.0) Ur Specific [place] 1.025 (1.001-1.035) Urine Protein 1+ H (Negative) Urine Glucose (UA) Negative (Negative) Urine Ketones Negative (Negative) Urine Blood Negative (Negative) Urine Nitrite Negative (Negative) Urine Bilirubin Negative (Negative) Urine Urobilinogen 4.0 (<2.0) mg/dL Ur Leukocyte Esterase Negative (Negative) Urine RBC 1 (0-5) /hpf Urine WBC <1 (0-5) /hpf Ur Squamous Epith Cells 19 H (0-4) /hpf Urine Bacteria Rare H (None) /hpf Urine Mucus Moderate H (None) /hpf Blood Type Blood Type Recheck Bld Type Recheck Status Disposition Clinical Impression: Nausea and vomiting in Disposition: HOME SELF-CARE Condition: Good Instructions (If sedation given, give patient instructions): Nausea and Vomiting in (ED) Additional Instructions: Return to the emergency department with any new, worsening, or concerning symptoms. You can take the Zofran up to every 8 hours as needed for nausea and vomiting. You can take this in conjunction with the Reglan up to every 6 hours. Slowly advance your diet as tolerated and remain well-hydrated. Follow up with your primary care provider in 1-2 days. Prescriptions: Ondansetron Odt [Zofran Odt] 4 mg PO Q8HR PRN #30 tab PRN Reason: Nausea And Vomiting Is patient prescribed a controlled substance at d/c from ED?: No Referrals: Jesusita Novak III, MD [Primary Care Provider] - 1-2 days Time of Disposition: 13:11
[2023-11-08 12:39] LABS: Appearance,Urine Cloudy (Clear); Bacteria,Urine Rare /hpf; Bilirubin,Urine Negative (Negative); Blood,Urine Negative (Negative); Color,Urine Yellow; Glucose,Urine (UA) Negative (Negative); Ketones,Urine Negative (Negative); Leukocyte Esterase,Urine Negative (Negative); Mucus,Urine Moderate /hpf; Nitrite,Urine Negative (Negative); Protein,Urine 1+ (Negative); RBC,Urine 1 /hpf (0-5); Specific Gravity,Urine 1.025 (1.001-1.035); Squamous Epithelial Cell,Urine 19 /hpf (0-4); WBC,Urine <1 /hpf (0-5)
[2023-11-08 14:21] VITALS: BP 130/76; PULSE 78
== END 2023-11-08 13:46 | disposition home or self-care (01) ==
LOC: EC 10:38
DX: O21.9 Vomiting of pregnancy, unspecified (principal); Z3A.10 10 weeks gestation of pregnancy; Z91.040 Latex allergy status
CPT/HCPCS: 99283; 96374 ×2; 96361 ×3; 36415; 86900; 86901; 80053; 85025; 81001; 84702; 99284; J2405

== ENCOUNTER 2024-05-02 09:24 | Outpatient (CLI) | payer OTHER ==
[2024-05-02 10:47] VITALS: BP 128/90; PULSE 81; RESP 18; TEMP 97.2
[2024-05-02 11:04] LABS: ALT 10 U/L (4-34); AST 17 U/L (14-36)
--- NOTE | 2024-06-05 11:50 | P.MSEPDOC ---
Presenting Problems - Arrival Data Date of Arrival on Unit: 05/02/24 Time of Arrival on Unit: 09:24 Mode of Transport: Ambulatory - Complaint OB-Reason for Admission/Chief Complaint: Other Comment: dizziness and generalized itching Medical History - Information : 3 Para: 2 Term: 2 : 0 Abortions: Spontaneous or Elective: 0 Number of Living Children: 2 - Gestational Age Gestational Age by KEVIN (wks/days): 36 Weeks and 1 Days - History Complications: Prior Comment: planned Review of Systems - Review of Systems Constitutional: No problems Breast: No problems ENT: No problems Cardiovascular: No problems Respiratory: No problems Gastrointestinal: No problems Genitourinary: No problems Musculoskeletal: No problems Neurological: Dizziness Skin: No problems Vital Signs - Temperature Temperature: 97.2 F Temperature Source: Temporal Artery Scan - Pulse Right Right Lateral Brachial Pulse Rate: 81 Pulse Assessment Method: Auscultation - Respirations Respiratory Rate: 18 Oxygen Delivery Method: Room Air O2 Sat by Pulse Oximetry: 99 - Blood Pressure Right Arm Sitting Blood Pressure: 128/90 Blood Pressure Mean: 102 Blood Pressure Source: Automatic Cuff Medical Screen Scoring - Assessment - Baby A Baseline FHR: 130 Heart Rate - NICHD Category: Category I (Normal) NST: Reactive Physician Notification - Physician Notified Physician Notified Date: 05/02/24 Physician Notified Time: 10:46 Physician: Aryan Martinez Order Received: Yes - Notification Comment Comment: dc home. Maternal Triage Index - Maternal Triage Index Presenting for scheduled procedure w/no complaint: No - Stat/Priority 1 Stat Priority 1: No - Urgent/Priority 2 Urgent Priority 2: No - Prompt/Priority 3 Prompt Priority 3: No - Non-Urgent/Priority 4 Non-Urgent Priority 4: Yes Criteria Met for Priority 4: dizziness and itching, labs drawn for liver and bile acids. pt will follow up in the office for results. Disposition - Disposition OB Disposition: Physician follow up in office, Discharge to home, Written follow up instructions reviewed Discharge Date: 05/02/24 Discharge Time: 10:47 I agree with the RN Medical Screening Exam: Yes Physician's MSE Comment: I have neither seen nor examined the patient. Case reviewed; plan agreed upon as documented in EMR&OBIX.: Yes Diagnosis: RELATED CONDITIONS, UNSPECIFIED, THIRD TRIMESTER
== END 2024-05-02 10:49 | disposition home or self-care (01) ==
LOC: FBPOP 09:24
PROVIDERS: ATTEND Obstetrics & Gynecology
DX: O26.93 Pregnancy related conditions, unspecified, third trimester (principal); Z3A.38 38 weeks gestation of pregnancy; F12.90 Cannabis use, unspecified, uncomplicated; Z91.040 Latex allergy status
CPT/HCPCS: 59025; 82239; 84450; 84460; G0463; 99213

== ENCOUNTER → 2024-05-11 | Outpatient (CLI) | payer OTHER ==
[~2024-05-11] MED LIST: SODIUM CHLORIDE 0.9% 250 ML in EMPTY BAG 1 BAG IV PRN
[2024-05-11 11:00] VITALS: BP 143/86; PULSE 100; RESP 16; TEMP 98
[2024-05-11] MEDS: SODIUM CHLORIDE 0.9% 500 ML 500 ML in EMPTY BAG 1 BAG IV PRN (11:00)
[2024-05-11] MEDS: IRON SUCROSE 200 MG in SODIUM CHLORIDE 0.9% 100 ML IVPB NR (11:01)
== END ==
LOC: PROCWHC3 10:42
PROVIDERS: ATTEND Obstetrics & Gynecology
DX: O99.013 Anemia complicating pregnancy, third trimester (principal); D64.9 Anemia, unspecified; O36.5930 Maternal care for other known or suspected poor fetal growth, third trimester, not applicable or unspecified; Z3A.00 Weeks of gestation of pregnancy not specified
CPT/HCPCS: 96365; J1756

== ENCOUNTER 2024-05-17 14:13 | Inpatient (IN) | payer OTHER ==
[2024-05-17] MEDS ORDERED: miSOPROStoL 200 MCG TAB RECTAL PRN (14:27)
[2024-05-17] MEDS ORDERED: OXYTOCIN 10 UNIT/ML 1 ML VIAL IM PRN (14:27)
[2024-05-17] MEDS ORDERED: miSOPROStoL 200 MCG TAB PO PRN (14:27)
[2024-05-17] MEDS ORDERED: TRANEXAMIC 1,000 MG/100ML-NACL 1,000 MG in EMPTY BAG 1 BAG IV PRN (14:27)
[2024-05-17] MEDS ORDERED: TERBUTALINE 1 MG/ML VIAL SQ PRN (14:27)
[2024-05-17] MEDS ORDERED: METHYLERGONOVINE 0.2 MG/ML 1 ML AMP IM PRN (14:27)
[2024-05-17] MEDS ORDERED: LIDOCAINE 0.5% (PF) 5 MG/ML (50 ML SDV) SQ PRN (14:27)
[2024-05-17] MEDS ORDERED: CARBOPROST TROMETHAMINE 250 MCG/ML 1 ML AMP IM PRN (14:27)
[2024-05-17] MEDS: LACTATED RINGERS 1,000 ML IV SCH (14:30)
--- NOTE | 2024-05-17 14:41 | P.HPOB ---
History of Present Illness H&P Date: 05/17/24 Chief Complaint: 38-2/7 weeks, active labor, previously section The patient is a 29-year-old 4 para 2-0-1-2 admitted at 38-3/7 weeks as established by an 8-week ultrasound. She is admitted in active labor with all signs reassuring, category 1 heart rate tracing. She carries a history of a previous section done for heart tone concerns and has requested vaginal trial of labor. In the third trimester, the patient was found by growth ultrasound to have growth at less than 10th percentile making the diagnosis of intrauterine growth restriction. She has had twice weekly reassuring testing since the time of diagnosis. She was scheduled for induction tomorrow morning for the same diagnosis. Group B strep status is negative. Obstetrical history: 4 para 2-0-1-2 with 1 term vaginal delivery and 1 section for heart tone concerns. Current statistics are listed in history of present illness. EDC of 05/29/2024 was established by an 8-week ultrasound. Laboratory workup demonstrates a blood type of A+ with a negative antibody screen. Rubella status is immune. The remainder of the laboratory workup is within normal limits. 1 hour Glucola was normal and group B strep status is negative. Gynecologic history: Unremarkable with no history of any infections to include STDs. Review of Systems Review of systems is confined to history of present illness. Past Medical History Past Medical History: No Reported History History of Any Multi-Drug Resistant Organisms: None Reported Past Surgical History: Tonsillectomy Additional Past Surgical History / Comment(s): [place] tooth extraction Past Anesthesia/Blood Transfusion Reactions: No Reported Reaction Smoking Status: Former smoker - Past Family History Father Family Medical History: Hypertension Medications and Allergies Home Medications Medication Instructions Recorded Confirmed Type Sertraline [Zoloft] 75 mg PO HS 05/25/20 05/12/24 History Vit No.180/Iron/Folic 1 each PO DAILY 10/11/20 05/12/24 History [ Plus Tablet] traZODone HCL [Desyrel] 25 mg PO DAILY 05/11/24 05/12/24 History Allergies Allergy/AdvReac Type Severity Reaction Status Date / Time latex Allergy Rash/Hives Verified 05/17/24 14:27 Exam Intake and Output 05/16/24 05/17/2405/17/24 22:59 06:59 14:59 Other: Weight 63.503 kg In general, this is a well-developed, well-nourished white female in discomfort as she is in active labor. Her heart has a regular rhythm and rate without murmur. Her lungs are clear to auscultation bilaterally in all davis. Her abdomen is gravid, nondistended, has normal active bowel sounds, soft, nontender, and without any palpable masses aside from the uterine fundus. Her extremities are without any cyanosis, clubbing, or edema and are nontender to palpation bilaterally. Digital cervical examination demonstrates her cervix to be approximately 8 cm dilated, 90% effaced, with a vertex and presentation at -1 station. Artificial rupture of membranes is carried out demonstrating clear fluid. Assessment and Plan (1) Previous section Current Visit: Yes Status: Acute Code(s): Z98.891 - HISTORY OF UTERINE SCAR FROM PREVIOUS SURGERY SNOMED Code(s): 016682154 (2) Intrauterine growth retardation in Current Visit: Yes Status: Acute Code(s): O36.5990 - MATERN CARE FOR OTH OR SUSP POOR FETL GRTH, UNSP TRI, UNSP SNOMED Code(s): 084043926 (3) Active labor at term Current Visit: Yes Status: Acute Code(s): ZEB6283 - SNOMED Code(s): 40928072 Plan: The patient is admitted for active management of labor, trial of vaginal after section. There is and complications have been explained at length in the office and she has agreed to proceed. Currently, all signs are reassuring. She will have close maternal and surveillance and expectant management will be practiced. She has requested an epidural catheter be placed and we are requesting anesthesia to place it at this time.
[2024-05-17] MEDS: OXYTOCIN 30 UNITS/500 ML NS 30 UNIT in SALINE 1 500ML.BAG IV SCH (15:00)
[2024-05-17 15:07] LABS: Anisocytosis Moderate; HCT 26.9 % (34.0-46.0); HGB 8.3 gm/dL (11.4-16.0); Hypochromasia Marked; MCH 21.9 pg (25.0-35.0); MCV 70.8 fL (80.0-100.0); Mean Platelet Volume 7.3; Microcytosis Marked; Platelet Count 317 k/uL (150-450); Poikilocytosis Moderate; RDW 22.9 % (11.5-15.5)
[2024-05-17] MEDS ORDERED: ZOLPIDEM 5 MG TAB PO PRN (15:13)
[2024-05-17] MEDS ORDERED: diphenhydrAMINE 25 MG CAP PO PRN (15:13)
[2024-05-17] MEDS ORDERED: diphenhydrAMINE 50 MG/ML 1 ML VIAL IVP PRN ×2 (15:13)
[2024-05-17] MEDS ORDERED: LANOLIN CREAM 1 GM TUBE TOPICAL PRN (15:13)
[2024-05-17] MEDS ORDERED: diphenhydrAMINE 50 MG CAP PO PRN (15:13)
[2024-05-17] MEDS ORDERED: HYDROCORTISONE 2.5% RECTAL CREAM 30 GM TUBE RECTAL PRN (15:13)
[2024-05-17] MEDS ORDERED: SIMETHICONE 80 MG CHEWABLE PO PRN (15:13)
[2024-05-17] MEDS ORDERED: BENZOCAINE/MENTHOL SPRAY 1 GM/SPRAY AEROSOL TOPICAL PRN (15:13)
--- NOTE | 2024-05-17 15:13 | P.PROBDLV ---
Vaginal Delivery Note - . Vaginal Delivery Note: The patient is a 29-year-old 4 para 2-0-1-2 admitted at 38-3/7 weeks by good dating parameters. She is admitted in active labor with all signs reassuring, category 1 heart rate tracing. Her was complicated by history of 1 previous section preceded by normal vaginal delivery. She has requested vaginal trial of labor for this . On labor delivery, she was found to be approximate 8 cm dilated at which time she underwent mario ficial rupture of membranes for clear fluid. She progressed very rapidly thereafter to complete and pushed involuntarily to the point of . She pushed 1 more time and delivered the head in the direct occiput anterior position. The remainder the infant was then delivered onto the field. She was delivered of a viable 5 pound 5.2 ounce baby boy with Apgars of 8 at 1 minute and 9 at 5 minutes in the direct occiput anterior position. The placenta was delivered spontaneously, intact, and grossly normal with a grossly normal three- vessel cord inserted approximately 4 to 5 cm from the margin of the placental disc. There were no lacerations of the perineum, vagina, or cervix. Estimated blood loss for the case was 100 mL or less. There were no complications. Both mother and infant are resting comfortably in recovery.
[2024-05-17] MEDS: IBUPROFEN 800 MG TAB PO PRN (15:41)
[2024-05-17 15:47] LABS: Band Neutrophils % 1 %; Lymphocytes # (M) 3.08 k/uL (1.0-4.8); Metamyelocytes # (M) 0.12 k/uL (0); Metamyelocytes % 1 %; Monocytes # (M) 0.74 k/uL (0-1.0); Neutrophils % (M) 69 %; Nucleated Red Blood Cells 1 /100 WBC (0-0); Total Cells Counted 200; WBC 12.3 k/uL (3.8-10.6)
[2024-05-17 15:48] LABS: Polychromasia Present
[2024-05-17 17:11] VITALS: RESP 16
[2024-05-17] MEDS: SENNOSIDES-DOCUSATE SODIUM 1 EACH TAB PO SCH (20:00)
[2024-05-17] MEDS: ACETAMINOPHEN TAB 500 MG TAB PO PRN (23:42)
[2024-05-18 06:11] LABS: Anisocytosis Moderate; Basophils % (A) 0 %; Eosinophils # (A) 0.1 k/uL (0-0.7); Eosinophils % (A) 1 %; HCT 21.5 % (34.0-46.0); Hypochromasia Marked; Lymphocytes # (A) 2.3 k/uL (1.0-4.8); Lymphocytes % (A) 25 %; MCH 22.9 pg (25.0-35.0); MCHC 31.8 g/dL (31.0-37.0); MCV 72.1 fL (80.0-100.0); Mean Platelet Volume 8.1; Microcytosis Marked; Monocytes # (A) 0.4 k/uL (0-1.0); Monocytes % (A) 4 %; Neutrophils % (A) 67 %; Platelet Count 182 k/uL (150-450); Poikilocytosis Slight; RBC 2.98 m/uL (3.80-5.40); RDW 23.8 % (11.5-15.5)
[2024-05-18 06:17] LABS: HGB 6.8 gm/dL (11.4-16.0)
--- NOTE | 2024-05-18 08:53 | P.PNOBGVD ---
Subjective - Subjective Patient reports: Reports appetite normal, Reports voiding normally, Reports pain well controlled, Reports ambulating normally : doing well, in NICU Objective - Latest Vital Signs Latest vital signs: Vital Signs Temp Pulse Resp BP 05/18/24 06:23 80 16 129/67 05/18/24 04:00 97.6 F 76 16 138/88 05/18/24 00:00 97.9 F 80 16 143/89 05/17/24 22:00 81 16 150/92 05/17/24 19:04 98.1 F 75 16 135/83 05/17/24 17:04 86 16 140/77 05/17/24 16:49 97.2 F L 116 H 18 151/87 05/17/24 16:19 75 18 143/94 05/17/24 16:04 72 16 146/93 05/17/24 15:49 97.2 F L 69 18 140/87 05/17/24 15:34 75 16 150/95 05/17/24 15:19 74 16 151/96 05/17/24 15:04 97.3 F L 86 18 149/89 Intake and Output 05/17/24 05/18/24 05/18/24 22:59 06:59 14:59 Intake Total 267 Output Total 150 Balance 117 Intake: Intake, IV Titration 167 Amount Oxytocin 30 Units/500 ml 167 Ns 30 unit In Saline 1 500ml.bag @ Per Protocol IV .Q0M [facility] Rx#:[id number] Oral 100 Output: Output, Estimated Blood 100 Loss Amount Output, Quantitative 50 Blood Loss Other: # Voids 1 2 Weight 63.503 kg - Exam Extremities: Present: normal Abdomen: Present: normal appearance, soft Uterus: Present: normal, firm (The uterine fundus is tonic and nontender well below the umbilicus.) - Labs Labs: Abnormal Lab Results - Last 24 Hours (Table) 05/17/24 05/18/24 Range/Units 14:27 05:53 WBC 12.3 H (3.8-10.6) k/uL RBC 2.98 L (3.80-5.40) m/uL Hgb 8.3 L 6.8 L* D (11.4-16.0) gm/dL Hct 26.9 L 21.5 L (34.0-46.0) % MCV 70.8 L 72.1 L (80.0-100.0) fL MCH 21.9 L 22.9 L (25.0-35.0) pg RDW 22.9 H 23.8 H (11.5-15.5) % Neutrophils # (Manual) 8.60 H (1.3-7.7) k/uL Metamyelocytes # (Man) 0.12 H (0) k/uL Nucleated RBCs 1 H (0-0) /100 WBC Assessment and Plan (1) Previous section Current Visit: Yes Status: Acute Code(s): Z98.891 - HISTORY OF UTERINE SCAR FROM PREVIOUS SURGERY SNOMED Code(s): 214604371 (2) Intrauterine growth retardation in Current Visit: Yes Status: Acute Code(s): O36.5990 - MATERN CARE FOR OTH OR SUSP POOR FETL GRTH, UNSP TRI, UNSP SNOMED Code(s): 019676149 (3) Active labor at term Current Visit: Yes Status: Acute Code(s): ELP1643 - SNOMED Code(s): 22708415 (4) Vaginal after section Current Visit: Yes Status: Acute Code(s): O34.219 - MATERNAL CARE FOR UNSP TYPE SCAR FROM PREVIOUS DEL SNOMED Code(s): 608085662 Plan: Continue routine care as the infant is currently in the special care nursery. I would anticipate discharge home tomorrow pending no complications. The patient has been encouraged to ambulate routinely. She did have a critically low hemoglobin that is otherwise asymptomatic and I have instructed her to begin iron sulfate once she is discharged home.
--- NOTE | 2024-05-19 10:51 | P.DS ---
Providers Date of admission: 05/17/24 14:21 Expected date of discharge: 05/19/24 Attending physician: Aryan Martinez Primary care physician: Stated None - Discharge Diagnosis(es) (1) Previous section Current Visit: Yes Status: Acute (2) Intrauterine growth retardation in Current Visit: Yes Status: Acute (3) Active labor at term Current Visit: Yes Status: Acute (4) Vaginal after section Current Visit: Yes Status: Acute Hospital Course: The patient is a 29-year-old 4 para 2-0-1-2 admitted at 38-3/7 weeks by good dating parameters. She is admitted in active labor with all signs reassuring, category 1 heart rate tracing. Her has been uncomplicated though she carries a history of a previous section for heart tone concerns and requested vaginal trial of labor. She was additionally in the third trimester found to have the measuring less than 10th percentile making the diagnosis of intrauterine growth restriction. testing was reassuring on a twice weekly basis after the diagnosis. Group B strep status is negative. On labor and delivery, she had artificial rupture of membranes carried out and progressed very quickly to complete. She then pushed to a normal spontaneous vaginal delivery of a viable 5 pound 5.2 ounce baby boy with Apgars of 8 at 1 minute and 9 at 5 minutes. The patient's course was unremarkable with vital signs remaining stable and her temperature was afebrile throughout. The infant has been monitored in the [facility] nursery for unusual patterns of oxygenation and a cardiac workup as a result. The patient herself was deemed stable for discharge on day #2 and was discharged home to follow-up in the office in 6 weeks time routinely. Discharge instructions included calling for any significantly increased bleeding or foul-smelling lochia, significantly increased fever abdominal pain, perineal complaints, breast complaints, or anything else that concerned her. She was additionally instructed to have nothing in the vagina for at least 6 weeks time to include intercourse. She understood her instructions and agrees to follow-up as noted above. Discharge medications included continued vitamins as she has opted to breast-feed. She was additionally instructed to use [id number] analgesic pain medications as needed. She was lastly instructed to take iron sulfate at least once daily for the next month to rebuild her hemoglobin as she was deemed "critically low" at 6.8 on day #1 though she was asymptomatic. Maternal blood type is a positive and rubella status is immune. Procedures: #1. Artificial rupture of membranes #2. Normal spontaneous vaginal delivery Patient Condition at Discharge: Stable Plan - Discharge Summary New Discharge Prescriptions: No Action Sertraline [Zoloft] 75 mg PO HS Vit No.180/Iron/Folic [ Plus Tablet] 1 each PO DAILY traZODone HCL [Desyrel] 25 mg PO DAILY Discharge Medication List Sertraline [Zoloft] 75 mg PO HS 05/25/20 [History] Vit No.180/Iron/Folic [ Plus Tablet] 1 each PO DAILY 10/11/20 [History] traZODone HCL [Desyrel] 25 mg PO DAILY 05/11/24 [History] Follow up Appointment(s)/Referral(s): Aryan Martinez MD [STAFF PHYSICIAN] - 06/28/24 1:45 pm Discharge Disposition: HOME SELF-CARE
[2024-05-19 17:18] VITALS: BP 141/87; PULSE 87; TEMP 97.8
== END 2024-05-19 18:30 | disposition home or self-care (01) | DRG 560 ==
LOC: FBPOP 14:13 → 4FBP 14:21
PROVIDERS: ADMIT Obstetrics & Gynecology; ATTEND Obstetrics & Gynecology
PROC: 10E0XZZ Delivery of Products of Conception, External Approach (ICD-10-PCS; principal; 2024-05-17)
PROC: 10907ZC Drainage of Amniotic Fluid, Therapeutic from Products of Conception, Via Natural or Artificial Opening (ICD-10-PCS; 2024-05-17)
DX: O34.219 Maternal care for unspecified type scar from previous cesarean delivery (principal); Z37.0 Single live birth; O36.5930 Maternal care for other known or suspected poor fetal growth, third trimester, not applicable or unspecified; O90.81 Anemia of the puerperium; Z3A.38 38 weeks gestation of pregnancy; Z87.891 Personal history of nicotine dependence; Z79.899 Other long term (current) drug therapy
CPT/HCPCS: 85025; 86850; 86900; 86901; 88307; 99213